=== PATIENT | male | born 1955 ===

== ENCOUNTER 2019-01-02 16:53 | Emergency (ER) | payer BC, SELFPAY ==
--- NOTE | 2019-01-02 17:59 | ED PDOC ---
HPI: General Adult Time Seen by Provider: 01/02/19 17:21 Chief Complaint (Nursing): Headache Chief Complaint (Provider): Neck Pain History Per: Patient, Collet Gluer (Aj Kwon # [id number]) History/Exam Limitations: language barrier Onset/Duration Of Symptoms: Hrs Current Symptoms Are (Timing): Still Present Additional Complaint(s): Patient is a 63 y/o male with no significant PMHx who presents to the ED for evaluation of right neck pain pain onset this morning at 5:00. Patient states last night he carried an air conditioner from his car to his house which might have caused the pain. Patient claims the pain comes and goes quickly. Patient states the pain worsens when turning his neck to the right. Patient reports he has experienced similar pain a couple weeks ago. Patient denies injury, nausea, vomiting, right arm pain, numbness or tingling, chest pain, trauma, headache, changes in vision and cough. Patient has been taking Tylenol with minimal relief. PCP: Dr. Miguelito Guerra Past Medical History Reviewed: Historical Data, Nursing Documentation, Vital Signs Vital Signs: Last Vital Signs Temp 99 F 01/02/19 17:05 Pulse 103 H 01/02/19 17:05 Resp 16 01/02/19 17:05 BP 139/89 01/02/19 17:05 Pulse Ox 96 01/02/19 17:05 - Medical History PMH: Diabetes, Hypercholesterolemia Other PMH: Vertigo - Surgical History Surgical History: No Surg Hx - Family History Family History: States: No Known Family Hx - Social History Current smoker - smoking cessation education provided: No Ex-Smoker (has not smoked in the last 12 months): No Alcohol: None Drugs: Denies - Home Medications Home Medications: Ambulatory Orders Medication Instructions Recorded Cyclobenzaprine [Cyclobenzaprine 10 mg PO TID PRN #12 tab 01/02/19 HCl] Ibuprofen [Ibu] 400 mg PO Q6 PRN #20 tablet 01/02/19 - Allergies Allergies/Adverse Reactions: Allergies Allergy/AdvReac Type Severity Reaction Status Date / Time No Known Allergies Allergy Verified 01/02/19 17:19 Review of Systems ROS Statement: Except As Marked, All Systems Reviewed And Found Negative Respiratory: Negative for: Cough Gastrointestinal: Negative for: Nausea, Vomiting Musculoskeletal: Positive for: Neck Pain (right). Negative for: Arm Pain Neurological: Negative for: Headache Physical Exam - Reviewed Nursing Documentation Reviewed: Yes Vital Signs Reviewed: Yes - Physical Exam Comments: GENERAL APPEARANCE: Patient is awake, alert, oriented x 3, in mild painful distress. SKIN: Warm, dry; (-) cyanosis. EYES: (-) conjunctival pallor, (-) scleral icterus. ENMT: Mucous membranes moist. NECK: (+) right lateral tenderness, (-) midline tenderness, (-) stiffness, (-) meningismus, (-) carotid bruits, (-) lymphadenopathy. Decreased ROM secondary to pain. CHEST AND RESPIRATORY: (-) rales, (-) rhonchi, (-) wheezes; breath sounds equal bilaterally. HEART AND CARDIOVASCULAR: regular rate and rhythm. (-) irregularity; (-) murmur, (-) gallop. EXTREMITIES: (-) deformity, (-) edema, (+) distal pulses. NEURO AND PSYCH: Mental status as above; (-) focal findings. - ECG O2 Sat by Pulse Oximetry: 96 (RA) Pulse Ox Interpretation: Normal Medical Decision Making Medical Decision Making: Time: 1734 Impression: Right Neck Pain Plan: CT Cervical Spine w/o Contrast Toradol 30 mg IM Patient will not be given muscle relaxer in the ED because he needs to drive home, therefore, will be given prescription. Time: 1849 FINDINGS: ALIGNMENT: Bony alignment is anatomic. DEGENERATIVE CHANGES: There is hypertrophic and degenerative change with disc space narrowing at the C4-C5 C5-C6 and C6-C7 levels. SOFT TISSUES: The prevertebral soft tissues are within normal limits. BONES: No acute fracture or aggressive appearing osseous lesion. IMPRESSION: No acute fracture identified. Hypertrophic and degenerative changes with chronic disc disease at the C4-C5 C5-C6 and C6-C7 levels. Clinical correlation advised. Electronically signed on Jan 02, 2019 6:50:12 PM EDT by: David Chua M.D., Certified by [facility], Diagnostic Radiology Time: Aj marky # [id number] CT shows degenerative changes in his neck. There is nothing broken or out of place. Patient informed that the pain could be muscular and/or the result of arthritis. On reevaluation the patient states the pain has gone down (+)FROM of neck. Patient will be given prescription of Ibuprofen and Flexeril. Patient advised when taking medication he should not drink or drive. Patient instructed to followup with PCP or an orthopedist. Patient will be given referral to an orthopedist. Discussed results, diagnosis, treatment, return precautions and f/u with pt who is understanding, in agreement and stable for dc Scribe Attestation: Documented by Jermaine Busby, acting as a scribe for Travis Mckeon PA-C Provider Scribe Attestation: All medical record entries made by the Scribe were at my direction and personally dictated by me. I have reviewed the chart and agree that the record accurately reflects my personal performance of the history, physical exam, medical decision making, and the department course for this patient. I have also personally directed, reviewed, and agree with the discharge instructions and disposition. Disposition - Clinical Impression Clinical Impression: Muscle spasms of neck, Disc disease, degenerative, cervical - Patient ED Disposition Is Patient to be Admitted: No Counseled Patient/Family Regarding: Studies Performed, Diagnosis, Need For Followup, Rx Given - Disposition Referrals: Andrew Posadas III, MD [Staff Provider] - Miguelito Guerra MD [Family Provider] - Disposition: Routine/Home Disposition Time: 19:45 Condition: IMPROVED Additional Instructions: Regrese a la ED para sntomas nuevos o que empeoran. Comunquese con iglesias mdico de cabecera u ortopedista. [place] los medicamentos segn lo prescrito. No conduzca ni glo alcohol cuando est tomando flexeril. Daisy por dejarnos cuidar de ti hoy. Recibi tratamiento para dolor de morenita, espasmo muscular y degeneracin del disco. La atencin mdica de emergencia que recibi hoy se dirigi a alcides sntomas agudos. Si le recetaron algn medicamento, llnelo y tmelo segn las indicaciones. Los sntomas pueden tardar varios buckner en resolverse. Regrese al Departamento de Emergencias si alcides sntomas empeoran, no mejoran o si tiene otros problemas. Comunquese con iglesias mdico dentro de 2 buckner para toya nueva evaluacin y naomi un seguimiento o llame a mirta de los mdicos / clnicas a los que medrano sido referido y que figuran en el formulario de Informacin de visita al paciente que se incluye en iglesias paquete de karli. Lleve todos los documentos que le entregaron al momento del karli junto con todos los medicamentos que est tomando para iglesias visita de seguimiento. Nuestro tratamiento no puede reemplazar la atencin mdica continua por parte de un proveedor de atencin primaria (PCP) fuera del departamento de emergencias. Prescriptions: Cyclobenzaprine [Cyclobenzaprine HCl] 10 mg PO TID PRN #12 tab PRN Reason: Muscle Spasm Ibuprofen [Ibu] 400 mg PO Q6 PRN #20 tablet PRN Reason: Pain, Moderate (4-7) Instructions: Degenerative Disc Disease, Muscle Spasms (DC) Forms: [employer] (French) Print Language: LEBANESE - POA Present On Arrival: None
[2019-01-02 20:47] VITALS: BP 122/80; PULSE 80; RESP 18; TEMP 98
[2019-01-02 22:42] VITALS: O2SAT 96
--- NOTE | 2019-01-03 10:08 | CT ---
Date of service: 01/02/2019 PROCEDURE: CT Cervical Spine without contrast HISTORY: lateral severe pain, decrease ROM COMPARISON: None available. TECHNIQUE: Axial computed tomography images were obtained of the cervical spine without the use of intravenous contrast. Coronal and sagittal reformatted images were created and reviewed. Radiation dose: Total exam DLP = 339.89 mGy-cm. This CT exam was performed using one or more of the following dose reduction techniques: Automated exposure control, adjustment of the mA and/or kV according to patient size, and/or use of iterative reconstruction technique. FINDINGS: VERTEBRAE: No fracture. Normal alignment. No destructive bony lesion. DISCS/SPINAL CANAL/NEURAL FORAMINA: No significant central canal or neural foraminal stenosis. Discs heights are grossly preserved. PARASPINAL SOFT TISSUES: Unremarkable. OTHER FINDINGS: None. IMPRESSION: No fracture or significant degenerative disc disease. The preliminary findings for this examination were reported by [facility] at 6:50 p.m. on 01/02/2019. There is concurrence of this report with the preliminary findings.
== END 2019-01-02 20:30 | disposition home or self-care (01) ==
LOC: H.ER 16:53
DX: M62.838 Other muscle spasm (principal); E11.9 Type 2 diabetes mellitus without complications; E78.00 Pure hypercholesterolemia, unspecified; Z87.891 Personal history of nicotine dependence
CPT/HCPCS: 72125; 96372; 99285; J1885